=== PATIENT | female | born 2000 | race Two or more races ===

== ENCOUNTER 2020-01-15 21:17 | Emergency (ER) | payer OTHER ==
[~2020-01-15] VITALS: Ht 170.2 cm; Wt 70.3 kg
[2020-01-15 21:25] VITALS: BP 131/90
--- NOTE | 2020-01-15 21:25 | NUR ---
ED Nurse Note: Patient presents to ED for c/o blisters in her nares that have been there for the past couple days. She states the blisters insider her nares start to bleed. No active nose bleed at this time. She denies any truama or injury to her nose. Patient is aaox4, breathing is normal and unlabored. No nasal obstruction noted.
[2020-01-15 21:35] VITALS: BP 130/85
--- NOTE | 2020-01-15 21:35 | NUR ---
ER DISCHARGE NOTE: Patient is cleared to be discharged per ERMD, pt is aox4, on room air, with stable vital signs. pt was given dc instructions, pt was able to verbalize understanding, pt id band removed. pt is able to ambulate with steady gait. pt took all belongings.
--- NOTE | 2020-01-15 21:50 | Emergency Room Report ---
History of Present Illness General Chief Complaint: Nosebleed Source: Patient Present Illness HPI Disclaimer: Please note that this report is being documented using DRAGON technology. This can lead to erroneous entry secondary to incorrect interpretation by the dictating instrument. HPI: 19-year-old female presents for evaluation of nasal papule and bleed. States 2 days ago she felt a "cyst" in the inside of the right nares. States it felt as if it was fluid-filled. She noted some bleeding yesterday which then scabbed over. Noted some bleeding again today. Bleeding was minimal, no brisk bleeding. Denied significant swelling. No exposure to recent chemicals or irritants. No prior history of polyps. Denies history of asthma or allergies. No difficulty breathing. Otherwise denies nasal congestion, sore throat, fever, ear pain. PMH: Denied PSH: Denied Allergies: Denied Social Hx: Denied Allergies: Coded Allergies: No Known Allergies (Unverified , 01/15/20) COVID-19 Screening Contact w/high risk pt: No Experienced COVID-19 symptoms?: No COVID-19 Testing performed [employer]: No Patient History Last Menstrual Period: 12/2019 Nursing Documentation-PMH Past Medical History: No Stated History Review of Systems All Other Systems: negative except mentioned in HPI Physical Exam Vital Signs Date Time Temp Pulse Resp B/P (MAP) Pulse Ox O2 Delivery O2 Flow Rate FiO2 01/15/20 21:20 98.4 95 16 131/90 (104) 98 Room Air General: Awake and alert, no acute distress HEENT: NC/AT. EOMI. PERRLA. There is a scabbed lesion over the lateral portion of the right nostril. No active bleeding. I see no other masses, cysts, vesicles, papules or any other findings. No findings in the left nares. Resp: Normal work of breathing Skin: Intact. No abrasions, laceration or rash over the exposed skin MSK: Normal tone and bulk. Moving all extremities. No obvious deformity. Neuro: Awake and alert. Mentating appropriately Medical Decision Making Diagnostic Impression: Primary Impression: Internal nasal lesion ER Course 19-year-old female presents for evaluation of nosebleed and reported nasal lesion. Differential includes was not limited to nasal polyp, dilated blood vessel, skin tag, cyst, among others. At this time all I see is a scabbed lesion likely representing the source of the bleed but I do not see an identifiable mass, polyp or other findings in the nares. No active bleeding. Will refer patient to ear nose throat. Stable for outpatient follow-up. Instructed to return with bleeding or recurrence of mass. Last Vital Signs Date Time Temp Pulse Resp B/P (MAP) Pulse Ox O2 Delivery O2 Flow Rate FiO2 01/15/20 21:20 98.4 95 16 131/90 (104) 98 Room Air Disposition: HOME, SELF-CARE Condition: Stable Referrals: [facility] Additional Instructions: Follow-up with one of the clinics listed here for referral to supervisor shearing. If there is brisk bleeding return to the emergency department immediately for reevaluation Selwyn Figueroa MD Jan 15, 2020 21:50
== END 2020-01-15 21:35 | disposition home or self-care (01) ==
LOC: EMR 21:33
DX: J34.89 Other specified disorders of nose and nasal sinuses (principal); R04.0 Epistaxis
CPT/HCPCS: 99281